=== PATIENT | female | born 1950 | race African-American/Black ===

== ENCOUNTER 2016-05-06 12:53 | Day surgery (SDC) | payer BC ==
--- NOTE | ~2016-05-06 | OP ---
Record Of Operation [facility] [address] [place]. [address] NAME: PHYLLIS MADERA : 54 STATUS : [facility]#: [id number] AGE: 65 ADM/REG DATE : 05/06/16 MR#: [id number] REPORT SERV DATE: 05/06/16 DICTATED BY: STALIN SWEENEY DATE: 05/06/16 REPORT STATUS : Draft TRANSCRIBED BY: MODL DATE: 05/06/16 DATE OF PROCEDURE: 05/06/2016 PREOPERATIVE DIAGNOSIS: Nonfunctioning right upper extremity arteriovenous graft. POSTOPERATIVE DIAGNOSIS: Nonfunctioning right upper extremity arteriovenous graft. PROCEDURE: 1. Right upper extremity fistulogram. 2. Percutaneous angioplasty and stenting of the right arteriovenous graft with axillary vein anastomosis. SURGEON: Stalin Sweeney M.D. HOTEL ATTENDANT: None. ANESTHESIA: General. INDICATIONS: The patient is a lady who had a right brachial artery to axillary vein AV graft placed by Dr. Nava. She subsequently has had two angioplasties of this graft and it is thought that the graft has clotted. She came in for my evaluation and I noted that her graft was pulsatile. Thus, she was consented for angiography with possible intervention. DESCRIPTION OF PROCEDURE: After informed consent was obtained, the patient was taken to the operating room and placed in the supine position on the operating table. An LMA was introduced and general anesthesia was administered. The patient's right upper extremity was prepped and draped in the usual sterile fashion. Ultrasound-guided access was obtained of the right upper extremity AV graft in an antegrade fashion. I obtained a fistulogram that demonstrated a pre-occlusive stenosis of the AV graft to axillary vein anastomosis. There was no other central stenosis identified. I placed a 6-Swiss sheath and angioplastied the venous anastomosis with an 8 mm balloon. While there was improvement, there was still a lot of irregularity at this point. There was no significant stenosis. Thus, I exchanged out my sheath for a 7-Swiss sheath. I then stented the axillary anastomosis into the axillary vein with an 8 x 50 mm Viabahn stent. Imaging obtained afterwards showed a great result. There was no significant residual stenosis. There was an area of poor apposition to the axillary vein centrally, but the graft was appropriately sized given the small size of the arteriovenous graft. I withdrew my wire, catheter, and sheath, and used a stitch for hemostasis. The patient tolerated the procedure well without any intraprocedural complications noted. GORDON/GINA Stalin Sweeney M.D. Record Of [address] [place] [address] NAME: PHYLLIS MADERA : 54 STATUS : [facility] PAT#: [id number] AGE: 65 ADM/REG DATE : 05/06/16 MR#: [id number] REPORT SERV DATE: 05/06/16 DICTATED BY: STALIN SWEENEY DATE: 05/06/16 REPORT STATUS : Draft TRANSCRIBED BY: GINA DATE: 05/06/16 / [id number] CC: Mc Ho M.D.
[~2016-05-06 12:53] MED LIST: ASAB PO; COREG6 PO; D.O.S.100 MG PO; DUONEB INH; FISH-EPA1000 MG PO; FLEX PO; GENASYME80 MG PO; HUMULIN R1 ML SC; LIPITOR40 PO; MOMUD PO; NEUR300 PO; PCET PO; PRILOSEC40 MG PO; TRAZ50 PO; ULTRAM50 PO; VITAMIN D31000 UNIT PO; VITC500 PO; XALAT OPH; [UNRECOGNIZED DRUG - MIXTURE] OR
[2016-05-06 13:35] LABS: HEMATOCRIT 34.1 % (36.0-48.0); HEMOGLOBIN 10.1 g/dL (12.0-16.0)
[2016-05-06 13:48] LABS: CALCIUM, SERUM 9.3 MG/DL (8.5-10.4); CHLORIDE, SERUM 99 MMOL/L (96-112); CO2 (CARBON DIOXIDE) 29 MMOL/L (24-34); CREATININE 3.73 MG/DL (0.55-1.02); GFR AFRICAN AMERICAN 14 ML/MIN (>=60); GFR NON AFRICAN AMERICAN 12 ML/MIN (>=60); GLUCOSE, SERUM 79 MG/DL (60-99); SODIUM, SERUM 137 MMOL/L (135-148)
[2016-05-06 13:49] LABS: BUN (BLOOD UREA NITROGEN) 30 MG/DL (6-23)
== END 2016-05-06 19:30 | disposition home or self-care (01) ==
LOC: SDC 12:53
PROVIDERS: Surgery
PROC: 05773DZ Dilation of Right Axillary Vein with Intraluminal Device, Percutaneous Approach (ICD-10-PCS; principal; 2016-05-06 14:15)
DX: T82.858A Stenosis of other vascular prosthetic devices, implants and grafts, initial encounter (principal); G47.33 Obstructive sleep apnea (adult) (pediatric); E78.00 Pure hypercholesterolemia, unspecified; I25.10 Atherosclerotic heart disease of native coronary artery without angina pectoris; I25.2 Old myocardial infarction; E03.9 Hypothyroidism, unspecified; E11.22 Type 2 diabetes mellitus with diabetic chronic kidney disease; E66.9 Obesity, unspecified; E11.40 Type 2 diabetes mellitus with diabetic neuropathy, unspecified; I13.0 Hypertensive heart and chronic kidney disease with heart failure and stage 1 through stage 4 chronic kidney disease, or unspecified chronic kidney disease; I50.9 Heart failure, unspecified; N18.6 End stage renal disease; F41.9 Anxiety disorder, unspecified; Z88.8 Allergy status to other drugs, medicaments and biological substances; Z79.899 Other long term (current) drug therapy; Z96.641 Presence of right artificial hip joint; Z95.1 Presence of aortocoronary bypass graft; Z98.890 Other specified postprocedural states
CPT/HCPCS: 36903; 80048; 82962; 85014; 85018; 93005; A9270-GY; C1725; C1769; C1874; C1894; J0690; J2250; J2370; J2405; J3010; Q9966